=== PATIENT | female | born 1985 | race Two or more races ===

== ENCOUNTER 2023-02-15 03:26 | Emergency (ER) | payer BC ==
[~2023-02-15] VITALS: Ht 165.1 cm; Wt 72.6 kg
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
[2023-02-15] MEDS ORDERED: KETOROLAC TROMETHAMINE INJ 60 MG/2 ML VIAL IM ONE (05:00)
[2023-02-15] MEDS ORDERED: ACETAMINOPHEN 325 MG TABLET PO ONE (05:00)
[2023-02-15] MEDS ORDERED: KETOROLAC TROMETHAMINE INJ 30 MG/ML VIAL ONE (05:06)
[2023-02-15] MEDS ORDERED: ACETAMINOPHEN ES 500 MG TABLET ONE (05:06)
[2023-02-15] MEDS ORDERED: NAPR-1164 PO (05:16)
[2023-02-15 05:27] VITALS: BP 155/84; TEMP 98.5; O2SAT 100
--- NOTE | 2023-02-15 05:27 | NUR ---
Patient discharged to home in stable condition. Written and verbal after care instructions given. Patient verbalizes understanding of instruction.
== END 2023-02-15 05:28 | disposition home or self-care (01) ==
LOC: ER 03:29
DX: S00.03XA Contusion of scalp, initial encounter (principal); Z60.2 Problems related to living alone; Y09 Assault by unspecified means; Y93.89 Activity, other specified; Y92.89 Other specified places as the place of occurrence of the external cause; Y99.8 Other external cause status
CPT/HCPCS: 99285; 70450; 96372; J1885